=== PATIENT | male | born 1950 | race Caucasian/White ===

== ENCOUNTER 2017-04-09 00:06 | Emergency (ER) | payer MEDICARE ==
[~2017-04-09] VITALS: Ht 182.9 cm; Wt 104.3 kg
[2017-04-09 00:35] LABS: Urine RBC None Seen /hpf (0 - 3)
[2017-04-09 00:43] LABS: Urine Bilirubin Negative (Negative); Urine Blood Negative /uL (Negative); Urine Color Yellow (Yellow); Urine Glucose Normal (Normal); Urine Ketone Negative (Negative); Urine Mucus FEW (None Seen); Urine Nitrite Negative (Negative); Urine Urobilinogen Normal (Negative); Urine pH 5.5 (5.0-8.0)
[2017-04-09 03:02] LABS: Basophils # (auto) 0 uL; Basophils % (auto) 0.5 % (0.0-2.0); Eosinophils # (auto) 0.1 uL; Eosinophils % (auto) 1.5 % (0.0-7.0); Hematocrit 46.2 % (41.0-53.0); Hemoglobin 15.9 g/dL (13.5-17.5); Lymphocytes % (auto) 29.2 % (10.0-50.0); Mean Corpuscular Hemoglobin 32.3 pg (28.0-32.0); Mean Corpuscular Hgb Conc. 34.4 g/dL (32.0-36.0); Mean Corpuscular Volume 93.8 fL (80.0-100.0); Mean Platelet Volume 7.3 fL (6.9-10.8); Monocytes # (auto) 0.6 uL; Monocytes % (auto) 8.4 % (0.0-12.0); Neutrophils # (auto) 4.2 uL; Neutrophils % (auto) 60.4 % (37.0-80.0); Nucleated Red Blood Cells % 0.1 %; Platelet Count (auto) 264 10^3/uL (140-450); Red Cell Distribution Width 13.1 % (11.8-14.3)
[2017-04-09 03:05] LABS: Albumin 3.9 g/dL (3.4-5.0); BUN/Creatinine Ratio 17.1; Bilirubin, Total 0.4 mg/dL (0.2-1.0); Calcium 8.3 mg/dL (8.5-10.1); Total Protein 7.9 g/dL (6.4-8.2)
[2017-04-09 09:58] VITALS: BP 168/89
== END 2017-04-09 10:05 | disposition home or self-care (01) ==
LOC: ER 00:06
DX: N39.0 Urinary tract infection, site not specified (principal); I10 Essential (primary) hypertension
CPT/HCPCS: 36415; 74176; 80053; 81001; 82150; 83690; 85025

== ENCOUNTER 2019-10-19 15:56 | Inpatient (IN) | payer MEDICARE, OTHER ==
[~2019-10-19] VITALS: Ht 185.4 cm; Wt 101.0 kg
[2019-10-19 16:45] LABS: Basophils # (auto) 0 10 ^3/uL (0-0.2); Basophils % (auto) 0.5 % (0.0-2.0); Eosinophils # (auto) 0 10 ^3/uL (0-0.8); Eosinophils % (auto) 0.5 % (0.0-7.0); Hematocrit 45.4 % (41.0-53.0); Hemoglobin 15.3 g/dL (13.5-17.5); Lymphocytes # (auto) 1.1 10 ^3/uL (0.4-5.4); Lymphocytes % (auto) 15.8 % (10.0-50.0); Mean Corpuscular Hgb Conc. 33.7 g/dL (32.0-36.0); Monocytes # (auto) 0.4 10 ^3/uL (0-1.3); Monocytes % (auto) 6.4 % (0.0-12.0); Neutrophils # (auto) 5.3 10 ^3/uL (1.6-8.6); Neutrophils % (auto) 76.8 % (37.0-80.0); Platelet Count (auto) 244 10^3/uL (140-450); Red Blood Cells 4.78 10^6/uL (4.5-5.90); Red Cell Distribution Width 13.1 % (11.8-14.3); White Blood Cell 6.9 10^3/uL (4.4-10.8)
[2019-10-19 16:54] LABS: Albumin 3.9 g/dL (3.4-5.0); Calcium 8.6 mg/dL (8.5-10.1); Potassium 3.9 mmol/L (3.5-5.1)
[2019-10-19 16:58] LABS: BUN/Creatinine Ratio 20.2; Bilirubin, Total 0.4 mg/dL (0.2-1.0); Total Protein 7.6 g/dL (6.4-8.2)
[2019-10-19 18:20] LABS: Urine Bacteria NONE SEEN /hpf (None Seen); Urine Blood Negative /uL (Negative); Urine Mucus FEW (None Seen); Urine Specific Gravity 1.018 (1.001-1.035); Urine WBC <1 /hpf (0 - 3)
[2019-10-19] MEDS ORDERED: ONDANSETRON HCL 4 MG/2 ML VIAL IV ONE (18:30)
[2019-10-19] MEDS ORDERED: MORPHINE SULFATE 4 MG/ML SYR/VIAL IV ONE (18:30)
[2019-10-19] MEDS ORDERED: MORPHINE SULF INJ 2 MG/ML SYRINGE 1ML IV PRN ×2 (19:30)
[2019-10-19] MEDS ORDERED: ONDANSETRON HCL 4 MG/2 ML VIAL IV PRN (19:30)
[2019-10-19] MEDS ORDERED: NITROGLYCERIN 0.4 MG SL TAB SL PRN (19:30)
--- NOTE | 2019-10-19 21:37 | NUR ---
Patient Arrived to Unit from ER Patient brought to unit at 2137 via wheelchair. Patient sitting in bed w/ no s/s of distress or SOB and no pain at this time. Patient ambulatory without assist and AOx4. Will continue to monitor.
[2019-10-19 21:50] VITALS: BP 125/82
[2019-10-19 22:00] VITALS: BP 125/82
[2019-10-19] MEDS: DOCUSATE SOD 100 MG CAP PO SCH (22:00)
[2019-10-20 05:00] VITALS: BP 112/71
--- NOTE | 2019-10-20 07:16 | NUR ---
CALLED HOSPITALIST FOR VEGETARIAN DIETARY ORDER. ORDER GIVEN.
--- NOTE | 2019-10-20 07:17 | NUR ---
CLOSING SHIFT NOTE ENDORSED CARE TO MORNING SHIFT MIGUEL CRONIN. PATIENT HAS NO S/S OF DISTRESS/SOB OR PAIN AT THIS TIME.
[2019-10-20 08:00] VITALS: BP 127/84
[2019-10-20 09:00] VITALS: BP 127/84
[2019-10-20] MEDS: DOCUSATE SOD 100 MG CAP PO SCH (09:54)
[2019-10-20] MEDS ORDERED: amLODIPine BESYLATE 5 MG TAB PO SCH (10:00)
[2019-10-20] MEDS ORDERED: FAMOTIDINE 20 MG TAB PO SCH (10:00)
[2019-10-20] MEDS ORDERED: LACTULOSE 20Gm/30ML SOLN PO ONE (10:30)
[2019-10-20] MEDS ORDERED: METR500T PO (11:14)
[2019-10-20] MEDS ORDERED: ONDA-144 PO (11:14)
[2019-10-20] MEDS ORDERED: LEVO-28 PO (11:14)
[2019-10-20 12:05] VITALS: BP 127/81
[2019-10-20] MEDS ORDERED: IBUP600T27 PO (12:38)
--- NOTE | 2019-10-20 13:25 | NUR ---
PATIENT DISCHARGED HOME WITH FAMILY. PATIENT TELEMETRY BOX REMOVED AND RETURNED TO THE TELEMETRY DEPARTMENT. ALL IV ACCESS DISCONTINUED. ALL DISCHARGE INSTRUCTIONS GIVEN. ALL DISCHARGE PAPERWORK SIGNED.
[2019-10-20] MEDS ORDERED: TAMSULOSIN HYDROCHLORIDE 0.4 MG CAP PO SCH (18:00)
[2019-10-20] MEDS ORDERED: LACTULOSE 20Gm/30ML SOLN PO SCH (22:00)
== END 2019-10-20 13:27 | disposition home or self-care (01) | DRG 395 ==
LOC: EDBD 15:56 → ER 15:56 → TELE 15:57 → TELE-WESTW 21:37
PROVIDERS: ADMIT Nurse Practitioner Acute Care; ATTEND Internal Medicine
DX: K62.89 Other specified diseases of anus and rectum (principal); M48.061 Spinal stenosis, lumbar region without neurogenic claudication; K20.9 Esophagitis, unspecified; K59.00 Constipation, unspecified; M51.36 Other intervertebral disc degeneration, lumbar region; M25.78 Osteophyte, vertebrae; N40.0 Benign prostatic hyperplasia without lower urinary tract symptoms; I10 Essential (primary) hypertension; Z87.19 Personal history of other diseases of the digestive system; K57.30 Diverticulosis of large intestine without perforation or abscess without bleeding
CPT/HCPCS: 36415; 72131; 74176; 80053; 81001; 82378; 85025; 93005; G0378